=== PATIENT | male | born 1970 | race Caucasian/White ===

== ENCOUNTER 2019-04-09 01:59 | Emergency (ER) | payer BC, OTHER ==
[2019-04-09] MEDS ORDERED: LABETALOL HCL INJ 20 MG/4 ML DISP.SYRIN IV ONE (03:10)
[2019-04-09 03:43] LABS: ABSOLUTE BASOPHILS # (AUTO) 0.1 10^3/uL (0.0-0.2); ABSOLUTE EOSINOPHILS # (AUTO) 0.5 10^3/uL (0.0-0.6); ABSOLUTE LYMPHOCYTES (AUTO) 2.8 10^3/uL (0.5-4.7); ABSOLUTE MONOCYTES (AUTO) 0.8 10^3/uL (0.1-1.4); ABSOLUTE NEUT (AUTO) 5.8 10^3/uL (1.7-8.2); BASOPHILS % (AUTO) 0.8 % (0-2); EOSINOPHILS % (AUTO) 5.2 % (0-6); HEMATOCRIT 38.4 % (37.9-51.0); HEMOGLOBIN 11.9 g/dL (13.5-17.0); LYMPHOCYTES % (AUTO) 27.7 % (13-45); MEAN CORPUSCULAR HEMOGLOBIN 20.6 pg (27.0-33.4); MEAN CORPUSCULAR HGB CONC 30.9 g/dL (32.0-36.0); MEAN CORPUSCULAR VOLUME 67 fl (80-97); MONOCYTES % (AUTO) 8.2 % (3-13); PLATELET COUNT 274 10^3/uL (150-450); RED BLOOD COUNT 5.76 10^6/uL (4.35-5.55); RED CELL DISTRIBUTION WIDTH 15.7 % (11.5-14.0); SEGMENTED NEUTROPHILS % (AUTO) 58.1 % (42-78); TOTAL CELLS COUNTED % (AUTO) 100 %
[2019-04-09 03:46] LABS: INTERNATIONAL RATION (INR) 1.07
[2019-04-09 03:47] LABS: PARTIAL THROMBOPLASTIN TIME 29.5 SEC (23.5-35.8)
[2019-04-09] MEDS ORDERED: MORPHINE SULFATE 10 MG/ML INJ IV ONE (04:13)
[2019-04-09] MEDS ORDERED: ONDANSETRON HCL INJ/PF 4 MG/2 ML SDV IV ONE (04:14)
--- NOTE | 2019-04-09 04:31 | ER Document Report ---
ED ENT - General Chief Complaint: Nose Bleed Stated Complaint: NOSE BLEED Time Seen by Provider: 04/09/19 03:10 Primary Care Provider: JOSE CARLOS ROSENTHAL MD [Primary Care Provider] - Follow up as needed TRAVEL OUTSIDE OF THE [place] IN LAST 30 DAYS: No - HPI Notes: This is a 49-year-old gentleman who presents today with complaint of a left sided nosebleed. Patient states that he woke up from sleep with bleeding his nose. Patient uses CPAP to sleep at night but he states he does not like to use a humidifier because it makes it difficult to sleep well. He states that sometimes his nose gets dry when he uses a CPAP without a humidifier. Patient also notes that he has a history of hypertension and his blood pressure has been elevated lately. He denies any headache. He denies any weakness. He denies any dizziness. He denies any anticoagulation use. Describes symptoms as moderate. There are no obvious aggravating or relieving factors. - Related Data Allergies/Adverse Reactions: No Known Allergies Allergy (Verified 04/18/15 16:35) Past Medical History - Social History Smoking Status: Never Smoker Chew tobacco use (# tins/day): Yes - 1 Frequency of alcohol use: Rare Drug Abuse: None Family History: Reviewed & Not Pertinent, Malignancy - Both parents, Other - Father with Iron processing disorder Patient has suicidal ideation: No Patient has homicidal ideation: No - Past Medical History Cardiac Medical History: Reports: Hx Hypercholesterolemia, Hx Hypertension Pulmonary Medical History: Reports: Hx Sleep Apnea Neurological Medical History: Reports: Hx Cerebrovascular Accident - Vertebral artery dissection. Denies: Hx Seizures Musculoskeletal Medical History: Reports Hx Gout Past Surgical History: Reports: Hx Orthopedic Surgery - left leg as child Review of Systems - Review of Systems EENT: Other - Nosebleed Cardiovascular: denies: Chest pain Respiratory: denies: Cough Neurological/Psychological: denies: Weakness, Headaches -: Yes All other systems reviewed and negative Physical Exam - Vital signs Vitals: Temp Pulse Resp BP Pulse Ox 98.3 F 86 20 160/101 H 95 04/09/19 02:19 04/09/19 02:19 04/09/19 02:19 04/09/19 02:19 04/09/19 02:19 Interpretation: Hypertensive - General General appearance: Appears well, Alert - HEENT Head: Normocephalic, Atraumatic Eyes: Normal Pupils: PERRL Nasal: Other - There is bleeding from the left nostril. I cannot see the obvious culprit vessel but it appears it may be anterior. - Respiratory Respiratory status: No respiratory distress Chest status: Nontender Breath sounds: Normal Chest palpation: Normal - Cardiovascular Rhythm: Regular Heart sounds: Normal auscultation Murmur: No - Abdominal Distension: No distension - Neurological Neuro grossly intact: Yes Cognition: Normal Orientation: AAOx4 - There is no motor, sensory or cerebellar deficits. Nonfocal neurologic exam. GCS is 15. [place] Coma Scale Eye Opening: Spontaneous [place] Coma Scale Verbal: Oriented [place] Coma Scale Motor: Obeys Commands [place] Coma Scale Total: 15 Speech: Normal Motor strength normal: LUE, RUE, LLE, RLE Sensory: Normal - Skin Skin Temperature: Warm Skin Moisture: Dry Skin Color: Normal Course - Re-evaluation Re-evalutation: 04/09/19 04:30 Clinical picture is consistent with nosebleed. Likely secondary to hypertension versus general surgery due to CPAP with a humidifier. 04/09/19 04:51 Patient reevaluated. Blood pressure improved. Patient complains of pain. States he feels miserable. Bleeding resolved. We will continue to observe him. 04/09/19 05:13 Patient reevaluated. He is doing well. No further bleeding. He is stable for discharge. Follow-up discussed with patient. Will refer to ENT. - Vital Signs Vital signs: Temp Pulse Resp BP Pulse Ox 98.3 F 86 20 169/102 H 98 04/09/19 02:19 04/09/19 02:19 04/09/19 02:19 04/09/19 04:01 04/09/19 04:01 - Laboratory Result Diagrams: 04/09/19 03:30 Laboratory results interpreted by me: 04/09/19 03:30 RBC 5.76 H Hgb 11.9 L MCV 67 L MCH 20.6 L MCHC 30.9 L RDW 15.7 H Procedures - Nosebleed Procedure Left Location: Anterior Supplies used: Rhinorocket Notes: 5.5 cm Rhino Rocket inserted in the left nostril. Balloon inflated with some saline. Bleeding controlled. No complications. Discharge - Discharge Clinical Impression: Left-sided nosebleed Condition: Stable Disposition: HOME, SELF-CARE Instructions: Nosebleed Instructions ([facility]) Prescriptions: Oxycodone HCl/Acetaminophen [Percocet 5-325 mg Tablet] 1 tab PO ASDIR PRN #15 tab PRN Reason: Referrals: JOSE CARLOS ROSENTHAL MD [Primary Care Provider] - Follow up as needed CHRISTIN GARRETT MD [ACTIVE STAFF] - Follow up tomorrow (Call today for schedule follow-up appointment with [facility])
[2019-04-09 05:22] VITALS: BP 149/102
== END 2019-04-09 05:30 | disposition home or self-care (01) ==
LOC: ER 01:59
PROC: 2Y41X5Z Packing of Nasal Region using Packing Material (ICD-10-PCS; principal; 2019-04-09)
DX: R04.0 Epistaxis (principal); I10 Essential (primary) hypertension
CPT/HCPCS: 36415; 85025; 85610; 85730; 30901; J3490; J2270; J2405; 96374; 96375; 99283

== ENCOUNTER 2019-04-10 11:06 | Emergency (ER) | payer BC ==
--- NOTE | 2019-04-10 11:37 | ER Document Report ---
ED Medical Screen (RME) - General Chief Complaint: Nosebleed Stated Complaint: FOLLOWUP/NOSE BLEED Time Seen by Provider: 04/10/19 11:32 Primary Care Provider: JOSE CARLOS ROSENTHAL MD [Primary Care Provider] - Follow up as needed Mode of Arrival: Ambulatory Information source: Patient Notes: 49-year-old male presented to ED for complaint of need to recheck his bleed. He states he was supposed to follow-up with ENT and he called them multiple times yesterday and each time they told him they would call him back and they did not. He states he has a nose packing that was supposed to be removed by the ENT and he wants to know if this time to take it out. Patient is alert oriented respirations regular and unlabored speaking in full sentences. He states he has not swallowed any blood in the last 18 hours and has not seen here today to the front. He states he thinks it has stopped. I have greeted and performed a rapid initial assessment of this patient. A c omprehensive ED assessment and evaluation of the patient, analysis of test results and completion of medical decision making process will be conducted by an additional ED providers. TRAVEL OUTSIDE OF THE [place] IN LAST 30 DAYS: No - Related Data Allergies/Adverse Reactions: No Known Allergies Allergy (Verified 04/18/15 16:35) Past Medical History - Social History Chew tobacco use (# tins/day): Yes Frequency of alcohol use: Occasional - Past Medical History Cardiac Medical History: Reports: Hx Hypercholesterolemia, Hx Hypertension Pulmonary Medical History: Reports: Hx Sleep Apnea Neurological Medical History: Reports: Hx Cerebrovascular Accident - Vertebral artery dissection. Denies: Hx Seizures Musculoskeltal Medical History: Reports Hx Gout Past Surgical History: Reports: Hx Orthopedic Surgery - left leg as child Physical Exam - Vital signs Vitals: Temp Pulse Resp BP Pulse Ox 98.7 F 82 18 172/90 H 95 04/10/19 11:12 04/10/19 11:12 04/10/19 11:12 04/10/19 11:12 04/10/19 11:12 Course - Vital Signs Vital signs: Temp Pulse Resp BP Pulse Ox 98.7 F 82 18 172/90 H 95 04/10/19 11:12 04/10/19 11:12 04/10/19 11:12 04/10/19 11:12 04/10/19 11:12 Doctor's Discharge - Discharge Referrals: JOSE CARLOS ROSENTHAL MD [Primary Care Provider] - Follow up as needed
--- NOTE | 2019-04-10 12:58 | ER Document Report ---
ED General - General Chief Complaint: Other Stated Complaint: FOLLOWUP/NOSE BLEED Time Seen by Provider: 04/10/19 11:32 Primary Care Provider: JOSE CARLOS ROSENTHAL MD [Primary Care Provider] - Follow up as needed Mode of Arrival: Ambulatory TRAVEL OUTSIDE OF THE [place] IN LAST 30 DAYS: No - HPI Notes: Patient is a 49-year-old male with a history of hypertension and LETI (CPAP at night) who presents complaining of increased discomfort with the Rhino Rocket that was placed about 36 hours ago to his left nare. Patient states that he has been having on and off nosebleeds for the past month. Patient states that he has not noticed any blood in his oropharynx and believes that the bleeding has otherwise stopped. He is able to eat and drink without difficulty. He is urinating normally and having normal bowel movements. Denies drug allergies. He is not on any blood thinning medications. He did try to call ENT yesterday, but they did not call him back. No other concerns or complaints. Denies any headache, fever, head injury, neck pain, changes in vision/speech/mentation/hearing, URI, sore throat, chest pain, palpitations, syncope, cough, shortness of breath, wheeze, dyspnea, abdominal pain, nausea/vomiting/diarrhea, urinary retention, dysuria, hematuria, or rash. - Related Data Allergies/Adverse Reactions: No Known Allergies Allergy (Verified 04/18/15 16:35) Past Medical History - General Information source: Patient - Social History Smoking Status: Unknown if Ever Smoked Chew tobacco use (# tins/day): Yes Frequency of alcohol use: Occasional Family History: Reviewed & Not Pertinent, Malignancy - Both parents, Other - Father with Iron processing disorder Patient has suicidal ideation: No Patient has homicidal ideation: No - Past Medical History Cardiac Medical History: Reports: Hx Hypercholesterolemia, Hx Hypertension Pulmonary Medical History: Reports: Hx Sleep Apnea Neurological Medical History: Reports: Hx Cerebrovascular Accident - Vertebral artery dissection. Denies: Hx Seizures Musculoskeletal Medical History: Reports Hx Gout Past Surgical History: Reports: Hx Orthopedic Surgery - left leg as child Review of Systems - Review of Systems -: Yes All other systems reviewed and negative Physical Exam - Vital signs Vitals: Temp Pulse Resp BP Pulse Ox 98.7 F 82 18 172/90 H 95 04/10/19 11:12 04/10/19 11:12 04/10/19 11:12 04/10/19 11:12 04/10/19 11:12 - Notes Notes: PHYSICAL EXAMINATION: GENERAL: Well-appearing, well-nourished and in no acute distress. HEAD: Atraumatic, normocephalic. EYES: Pupils equal round and reactive to light, extraocular movements intact, sclera anicteric, conjunctiva are normal. ENT: Nares patent and with dried bloody discharge left side after rhino rocket removed. No active bleeding noted. oropharynx clear without exudates or blood noted. No tonsilar hypertrophy or erythema. Moist mucous membranes. No sinus tenderness. NECK: Normal range of motion, supple without lymphadenopathy LUNGS: Breath sounds clear to auscultation bilaterally and equal. No wheezes rales or rhonchi. HEART: Regular rate and rhythm without murmurs, rubs, gallops. NEUROLOGICAL: Cranial nerves grossly intact. Normal speech, normal gait. PSYCH: Normal mood, normal affect. SKIN: Warm, Dry, normal turgor, no rashes or lesions noted. Course - Re-evaluation Re-evalutation: 04/10/19 12:45 Rhino rocket was removed successfully w/o any complications. No active bleeding is noted. We will monitor for a brief period to make sure he has no other active bleeding prior to discharge. 04/10/19 13:24 Patient is an afebrile, well-hydrated, 49-year-old male who presents with resolved nosebleed. Vitals are acceptable without significant tachycardia, tachypnea, or hypoxia. PE is otherwise unremarkable. Patient is nontoxic- appearing and is tolerating p.o. without difficulty. No further work-up warranted at this time. Low suspicion for any other systemic or emergent condition at this time. Patient to recheck with his PCM in 3 to 5 days. Call ENT to schedule an appointment for further evaluation and management. Return to the ED with any other worsening/concerning symptoms. Patient is in agreement. - Vital Signs Vital signs: Temp Pulse Resp BP Pulse Ox 98.7 F 82 18 142/88 H 95 04/10/19 11:12 04/10/19 11:12 04/10/19 11:12 04/10/19 11:36 04/10/19 11:12 Discharge - Discharge Clinical Impression: Bleeding nose Condition: Stable Disposition: HOME, SELF-CARE Additional Instructions: Maintain adequate fluid intake Avoid blowing nose/picking at nose for at least 2-3 days use afrin nose spray as directed with recurrence of mild bleeding F/u: with your PCM in 3-5 days for a recheck Schedule an appointment with ENT for further evaluation and management Return to the ED with any fever, dizziness, tinnitus, headaches, worsening pain, chest pain, palpitations, syncope, neck pain/stiffness, shortness of breath, wheezing, drooling, trouble swallowing/breathing, abdominal pain, n/v/d, rash, or worsening/concerning symptoms otherwise. Referrals: JOSE CARLOS ROSENTHAL MD [Primary Care Provider] - Follow up as needed RITO DAVIS DO [ASSOCIATE] - Follow up as needed
[2019-04-10 14:22] VITALS: BP 146/80
== END 2019-04-10 14:21 | disposition home or self-care (01) ==
LOC: ER 11:06
DX: R04.0 Epistaxis (principal); I10 Essential (primary) hypertension; G47.33 Obstructive sleep apnea (adult) (pediatric); Z99.89 Dependence on other enabling machines and devices
CPT/HCPCS: 99283